=== PATIENT | male | born 1995 | race Caucasian/White ===

== ENCOUNTER 2016-08-22 09:10 | Emergency (ER) | payer OTHER, BC ==
[2016-08-22] MEDS ORDERED: NORMAL SALINE 10 ML SYRINGE FLUSH IVP PRN (09:33)
[2016-08-22] MEDS ORDERED: ONDANSETRON 4 MG/2 ML VIAL IVP ONE (09:33)
[2016-08-22] MEDS ORDERED: Sodium Chloride 0.9% 1,000 ML PRIMARY IV ONE (09:33)
[2016-08-22] MEDS ORDERED: Pantoprazole Inj 40 MG in Normal Saline Flush 10 ML IVP ONE (09:34)
[2016-08-22 09:38] VITALS: RESP 16; TEMP 96.7
[2016-08-22 10:16] LABS: BASOPHILS # (AUTO) 0.07 10*3/UL; BASOPHILS % (AUTO) 0.8 % (0-1); EOSINOPHILS # (AUTO) 0.17 10*3/UL; HEMATOCRIT 47.7 % (42.0-52.0); HEMOGLOBIN 17.2 g/dL (14.0-18.0); LYMPHOCYTES # (AUTO) 1.82 10*3/uL; MEAN CORPUSCULAR HEMOGLOBIN 30.1 PG (27-31); MEAN CORPUSCULAR HGB CONC 36.1 g/dL (33-37); MEAN CORPUSCULAR VOLUME 83.4 FL (80-90); MEAN PLATELET VOLUME 10.1 FL (7.4-12.2); MONOCYTES # (AUTO) 0.58 10*3/UL (0.3-0.8); MONOCYTES % (AUTO) 6.9 % (5-15); NEUTROPHILS # (AUTO) 5.73 10*3/UL; NEUTROPHILS % (AUTO) 68.2 % (50-80); RED BLOOD COUNT 5.72 10^6/uL (4.70-6.10)
[2016-08-22 10:21] LABS: PLATELET MORPHOLOGY COMMENT NORMAL MORPHOLOGY (NORM); RBC MORPHOLOGY COMMENT NORMAL MORPHOLOGY (NORM); WBC MORPHOLOGY COMMENT NORMAL MORPHOLOGY (NORM)
[2016-08-22 10:25] LABS: BLOOD UREA NITROGEN 12 mg/dL (7-22); CALCIUM 9.4 mg/dL (8.7-10.7); EST GLOMERULAR FILTRATION > 60 (>60 ml/min/1.73m(2)); LIPASE 56 IU/L (23-300); SERUM ALBUMIN 4.7 g/dL (3.5-4.8)
--- NOTE | 2016-08-22 20:53 | PDOC ---
Nausea/Vomiting/Diarrhea HPI - General Chief Complaint: Nausea / Vomiting / Diarrhea Stated Complaint: VOMITING BLOOD/DIARRHEA x2 DAYS Date Seen by Provider: 08/22/16 Time Seen by Provider: 09:15 Source: POSITIVE: Patient Exam Limitations: POSITIVE: No limitations Nurse's Notes Reviewed & Considered: Yes - History of Present Illness Initial Comments: The patient is a 21-year-old male. He states he's had some mild intermittent diarrhea for about a week. He developed some nausea and vomiting about one hour [employer]. He states that initially he vomited up food particles and water. He retched several times and as he was retching he noticed some bright red blood in his vomitus. No fevers or chills. Mild abdominal cramping. Patient last ate around 2 AM. Body Location Affected: REPORTS: Abdomen Timing: REPORTS: Abrupt Duration: 1 hour Severity: Moderate Quality: REPORTS: Cramping (Mild abdominal cramping earlier) Abdominal Pain Onset Location: REPORTS: LLQ Abdominal Pain Radiation: REPORTS: No radiation Context: DENIES: None, Activity, Bending, Coughing, Fall, Lifting, Near Fall, Rest, Sitting, Sleep, Standing, Turning, Emotional stress, Camping, Bad Food, Out of Country Travel, Other, Recent Surgery, Recent Trauma Modifying Factors: improves with: Vomiting (As above). worse with: Nothing, Analgesics, Antacids, Breathing, Coughing, Defecating, Eating, Exercise, Lying down, Urinating, Palpation, Movement, Rest, Upright Position, Walking, Remaining Still, Other Associated Symptoms: REPORTS: Vomiting, Other (Bright red hematemesis) Similar Symptoms Previously: No Recent Care Received: REPORTS: Denies - Patient Home Medications Home Medications: Home Medications Ondansetron Odt [Zofran ODT] 4 mg PO Q4H PRN #12 tab.rapdis 08/22/16 - Patient Allergies Allergies/Adverse Reactions: Allergies Allergy/AdvReac Type Severity Reaction Status Date / Time No Known Drug Allergies Allergy none Verified 08/22/16 09:19 Past Medical History - heen HEENT History: Denies History Cardiovascular History: Denies History Respiratory History: Denies History Gastrointestinal History: Denies History Genitourinary History: Denies History Endocrine History: Denies History Musculoskeletal History: Denies History Prosthesis or Implant: No Neurological History: Denies History Blood Disorders: Denies History Psychiatric History: Denies History History of Sexually Transmitted Diseases: No Male Reproductive History: Denies History Cancer History: Denies History In Past Year Been Physically Harmed or Verbally Threatened: No History of MDRO: No History of Other Communicable Diseases: No Tobacco Use: Never Smoker Alcohol Use: Occasionally Substance Use Type: None Previous Surgical History: Yes Type / Date of Surgery: tonsils Anesthesia Reactions: No Significant Family History: No pertinent family hx Past Medical History Reviewed: Reviewed - No Changes ROS - Limitations ROS Limitations: No Limitations Constitution: REPORTS: Denies Symptoms Cardiovascular: REPORTS: Denies Cardiac Symptoms Respiratory: REPORTS: Denies Resp Symptoms Neurological: REPORTS: Denies Neuro Symptoms Gastrointestinal: REPORTS: Vomitting, Other (Hematemesis after retching) Endocrine: REPORTS: Denies Symptoms Musculoskeletal: REPORTS: Denies MS Symptoms Genitourinary: REPORTS: Denies Symptoms Eyes: REPORTS: Denies Symptoms ENT: REPORTS: Denies Symptoms Skin: REPORTS: Denies Skin Symptoms Lympathic: REPORTS: Denies Lympathic Symptoms Immunologic: POSITIVE: Denies Symptoms Psychiatric: POSITIVE: Denies Psych Symptoms Nausea/Vomiting/Diarrhea Exam - General Appearance General Appearance: POSITIVE: Alert, Cooperative, No Acute Distress, No Evidence of Trauma - HEENT HEENT: POSITIVE: Head Inspection Nml, Eyes Inspection Nml, Ears Inspection Nml, Nose Inspection Nml, Oral/Dental Inspect. Nml, Pharynx Inspect. Nml, PERRL, EOMI - Neck Neck: POSITIVE: Supple, Normal Inspection, Non Tender - Respiratory Respiratory: POSITIVE: No Respiratory Distress, Breath Sounds Normal, Chest Non- Tender - Cardiovascular Cardiovascular: POSITIVE: Regular Rate and Rhythm, Heart Sounds Normal, Equal Pulses, Strong Pulses Peripheral Pulses: Radial (R): 2+, Radial (L): 2+ - Chest Chest: POSITIVE: Non Tender - Abdomen Abdomen: Soft: (All Quadrants), Normal Bowel Sounds: (All Quadrants), Denies Tenderness: (All Quadrants), No Splenomegaly: (All Quadrants), No Hepatomegaly: (All Quadrants), No Guarding: (All Quadrants), No Rebound: (All Quadrants), No Palpable Pulse: (All Quadrants), No Palpabale Mass: (All Quadrants), No Distention: (All Quadrants), No Rigidity: (All Quadrants) - Genital / Rectal Rectal: POSITIVE: Non Tender, Normal Rectal Tone, Heme Negative Stool, Other ( Stool well formed) - Back Back: POSITIVE: Normal Inspection. 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, Motor Normal, Sensation Normal, 5, 6 N/V/D Progress - Results Reviewed by me Lab Results Reviewed: Yes (all normal) Lab Results:: Laboratory Results 08/22/16 Range/Units 10:03 WBC 8.41 (4.8-10.8) 10^3/uL RBC 5.72 (4.70-6.10) 10^6/uL Hgb 17.2 (14.0-18.0) g/dL Hct 47.7 (42.0-52.0) % MCV 83.4 (80-90) FL MCH 30.1 (27-31) PG MCHC 36.1 (33-37) g/dL RDW Std Deviation 40.0 (39-50) fL RDW Coeff of [place] 13.1 (11.5-14.5) % Plt Count 310 (140-350) 10*3/uL MPV 10.1 (7.4-12.2) FL Immature Gran % (Auto) 0.5 (0-5) % Neut % (Auto) 68.2 (50-80) % Lymph % (Auto) 21.6 (10-50) % Haines % (Auto) 6.9 (5-15) % Eos % (Auto) 2.0 (0-8) % Baso % (Auto) 0.8 (0-1) % Immature Gran # (Auto) 0.04 10*3/UL Neut # (Auto) 5.73 10*3/UL Lymph # (Auto) 1.82 10*3/uL Haines # (Auto) 0.58 (0.3-0.8) 10*3/UL Eos # (Auto) 0.17 10*3/UL Baso # (Auto) 0.07 10*3/UL WBC Morphology Comment Normal morphology (NORM) Plt Morphology Comment Normal morphology (NORM) RBC Morph Comment Normal morphology (NORM) Sodium 140 (135-145) meq/L Potassium 3.9 (3.8-5.2) meq/L Chloride 103 (98-112) meq/L Carbon Dioxide 25 (23-33) meq/L Anion Gap 12 (5-20) BUN 12 (7-22) mg/dL Creatinine 1.0 (0.70-1.50) mg/dL Estimated GFR > 60 (>60 ml/min/1.73m(2)) BUN/Creatinine Ratio 12.00 (6-20) Glucose 97 (78-110) mg/dL Calculated Osmolality 289.0 (267-292) mOsm/kg Calcium 9.4 (8.7-10.7) mg/dL Total Bilirubin 0.7 (0.3-1.2) mg/dL AST 53 (21-57) IU/L ALT 83 H (21-72) IU/L Alkaline Phosphatase 78 (38-126) IU/L Total Protein 8.1 H (6.1-8.0) g/dL Albumin 4.7 (3.5-4.8) g/dL Globulin 3.4 (2.50-4.10) g/dL Albumin/Globulin Ratio 1.30 (1.3-2.0) mg/g Amylase 78 (30-110) U/L Lipase 56 (23-300) IU/L - Patient's Progress Pain Medication Addressed: POSITIVE: Not Applicable School/Work Release Addressed: POSITIVE: Not Applicable Re-examine Time: 11:00 Re-Examine Comment: Patient hydrated with somewhat over a liter of normal saline and was given Zofran IV for nausea. Patient has had no further nausea or vomiting in the emergency room and is hungry. 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 Status: POSITIVE: Improved, Re-Examined - Consult Counseled: POSITIVE: Patient, Family (Mother), RE: Lab Results, RE: DX, RE: Need for F/U Patient Care Time - Estimated PCT Patient Care Time (In Minutes): 45 Vital Signs - VS Reviewed Vital Signs Reviewed: Yes Discharge Clinical Impression: Gastroenteritis, Hematemesis with nausea Discharge Disposition: Discharged to Home Condition: Stable Prescriptions / Orders: Ondansetron Odt [Zofran ODT] 4 mg PO Q4H PRN #12 tab.rapdis PRN Reason: Nausea Patient Instructions Given at Discharge: Gastroenteritis (ED), Carol-Liriano Syndrome (ED) Additional Instructions: Clear liquid diet for 12 hours. Zofran, one dissolved on tongue every 4 hours as necessary for nausea. Return here anytime if condition worsens in any way. Follow-up with your primary care provider. Follow Up With: NONE,NONE [Primary Care Provider] - (Instructions as above. Follow-up with your primary care provider. Return here anytime if condition worsens in any way.)
== END 2016-08-22 11:22 | disposition home or self-care (01) ==
LOC: ER 09:10
DX: K52.9 Noninfective gastroenteritis and colitis, unspecified (principal); K92.0 Hematemesis; R10.32 Left lower quadrant pain; R11.0 Nausea; R19.7 Diarrhea, unspecified
CPT/HCPCS: 80053; 82150; 82272; 83690; 85025; 96361; 96374; 96375; 99282; 99283; J2405; J3490; J7030